=== PATIENT | male | born 1965 | race Caucasian/White ===

== ENCOUNTER 2017-12-17 14:22 | Emergency (ER) | payer BC, OTHER ==
[2017-12-17 15:06] VITALS: BP 141/79
--- NOTE | 2017-12-17 15:12 | UC ---
Throat Pain/Nasal Aj HPI - HPI Summary HPI Summary: sinus pain and pressure x 4 weeks + nasal congestion , pnd, cough no fever, no chills - History of Current Complaint Chief Complaint: UCRespiratory Stated Complaint: SINUSES Time Seen by Provider: 12/17/17 15:07 Hx Obtained From: Patient Onset/Duration: Gradual Onset, Lasting Weeks - 4, Still Present Severity: Moderate Pain Intensity: 8 Cough: None Associated Signs & Symptoms: Positive: Sinus Discomfort, Nasal Discharge. Negative: Dysphagia, FB Sensation, Drooling, Wheezing, Hoarseness, Fever, Vomiting, Rash - Allergies/Home Medications Allergies/Adverse Reactions: Allergies Allergy/AdvReac Type Severity Reaction Status Date / Time RADIOLOGY CONTRAST Allergy VOMITED Uncoded 12/17/17 15:02 PMH/Surg Hx/FS Hx/Imm Hx Previously Healthy: Yes - Surgical History Surgical History: Yes Surgery Procedure, Year, and Place: ORBITAL FX -PLATE. LT [place]- REMOVAL OF BURSA SAC. Lt RING FINGER - PINS ( PINS ARE NOW REMOVED) - Family History Known Family History: Negative: Diabetes - Social History Alcohol Use: Occasionally Substance Use Type: None Smoking Status (MU): Never Smoked Tobacco Review of Systems Constitutional: Negative Skin: Negative Eyes: Negative ENT: Sore Throat, Ear Ache, Nasal Discharge, Sinus Congestion, Sinus Pain/ Tenderness Respiratory: Negative Cardiovascular: Negative Gastrointestinal: Negative Is Patient Immunocompromised?: No All Other Systems Reviewed And Are Negative: Yes Physical Exam Triage Information Reviewed: Yes Appearance: Well-Appearing, No Pain Distress, Well-Nourished Vital Signs: Initial Vital Signs Temp 97.5 F 12/17/17 15:03 Pulse 86 12/17/17 15:03 Resp 16 12/17/17 15:03 BP 141/79 12/17/17 15:03 Pulse Ox 97 12/17/17 15:03 Vital Signs Reviewed: Yes Eyes: Positive: Conjunctiva Clear ENT: Positive: Normal ENT inspection, Hearing grossly normal, Pharynx normal, TMs normal, Sinus tenderness. Negative: Tonsillar swelling, Tonsillar exudate Neck: Positive: Supple, Nontender, No Lymphadenopathy Respiratory: Positive: Chest non-tender, Lungs clear, Normal breath sounds Cardiovascular: Positive: RRR, No Murmur, Pulses Normal Skin Exam: Normal Throat Pain/Nasal Course/Dx - Differential Dx/Diagnosis Provider Diagnoses: Sinusitis Discharge - Discharge Plan Condition: Stable Disposition: HOME Prescriptions: Amoxicillin/Clavulanate TAB* [Augmentin TAB 875*] 875 mg PO BID #20 tab Patient Education Materials: Sinusitis (ED) Referrals: No Primary Care Phys,NOPCP [Primary Care Provider] - If Needed
== END 2017-12-17 15:17 | disposition home or self-care (01) ==
LOC: UCCORT 14:22
DX: J32.9 Chronic sinusitis, unspecified (principal)
CPT/HCPCS: 99212; G0463

== ENCOUNTER 2017-12-26 12:32 | Emergency (ER) | payer BC ==
[2017-12-26 13:33] VITALS: BP 127/72
--- NOTE | 2017-12-26 14:45 | UC ---
Throat Pain/Nasal Aj HPI - HPI Summary HPI Summary: pt is c/o a 1 month hx sinus pain, pressure, congestion and green drainage. he was seen here on the 19 and tx with augmentin. pt notes minimal to no relief. he has self tx with nasal saline, decongestants and nyquil as well. no associated fever, headache or dental pain. denies allergies. - History of Current Complaint Chief Complaint: UCRespiratory Stated Complaint: RE-CHECK SINUS Time Seen by Provider: 12/26/17 14:35 Hx Obtained From: Patient Onset/Duration: Gradual Onset Severity: Severe Pain Intensity: 0 Associated Signs & Symptoms: Positive: Sinus Discomfort, Nasal Discharge. Negative: Fever - Epiglottits Risk Factors Epiglottis Risk Factors: Negative - Allergies/Home Medications Allergies/Adverse Reactions: Allergies Allergy/AdvReac Type Severity Reaction Status Date / Time RADIOLOGY CONTRAST Allergy VOMITED Uncoded 12/26/17 13:29 PMH/Surg Hx/FS Hx/Imm Hx Previously Healthy: Yes - Surgical History Surgical History: Yes Surgery Procedure, Year, and Place: ORBITAL FX -PLATE. [facility]- REMOVAL OF BURSA SAC. Lt RING FINGER - PINS ( PINS ARE NOW REMOVED) - Family History Known Family History: Negative: Diabetes - Social History Occupation: Employed Full-time Lives: With Family Alcohol Use: Occasionally Substance Use Type: None Smoking Status (MU): Never Smoked Tobacco - Immunization History Vaccination Up to Date: Yes Review of Systems Constitutional: Negative Skin: Negative Eyes: Negative ENT: Nasal Discharge, Sinus Congestion, Sinus Pain/Tenderness Respiratory: Negative Cardiovascular: Negative Gastrointestinal: Negative Genitourinary: Negative Motor: Negative Neurovascular: Negative Musculoskeletal: Negative Neurological: Negative Psychological: Negative Is Patient Immunocompromised?: No All Other Systems Reviewed And Are Negative: Yes Physical Exam Triage Information Reviewed: Yes Appearance: Well-Appearing Vital Signs: Initial Vital Signs Temp 97.5 F 12/26/17 13:29 Pulse 83 12/26/17 13:29 Resp 18 12/26/17 13:29 BP 127/72 12/26/17 13:29 Pulse Ox 100 12/26/17 13:29 Eyes: Positive: Conjunctiva Clear ENT: Positive: Pharynx normal, Nasal drainage, TMs normal, Sinus tenderness Neck: Positive: Supple, Nontender, No Lymphadenopathy Respiratory: Positive: Lungs clear, Normal breath sounds Cardiovascular: Positive: RRR, No Murmur, Pulses Normal Abdomen Description: Positive: Nontender, No Organomegaly, Soft Bowel Sounds: Positive: Present Musculoskeletal: Positive: ROM Intact Neurological: Positive: Alert Psychological: Positive: Age Appropriate Behavior Skin Exam: Normal Throat Pain/Nasal Course/Dx - Course Course Of Treatment: pt hx/PE c/w sinusitis. he has failed tx with augmentin and otc tx. i have advised pt of risk for c-diff colitis, mm/tendon/ligament complications associated with Levaquin. He is willing to take risk thus will tx with Levaquin, prednisone and ENT f/u. Pt works in this area and is requesting f /u with Dr Lebron thus referal given to Dr Lebron. - Differential Dx/Diagnosis Provider Diagnoses: sinusitis Discharge - Discharge Plan Condition: Stable Disposition: HOME Prescriptions: Levofloxacin TAB* [Levaquin TAB*] 750 mg PO DAILY 7 Days #7 tab predniSONE [Prednisone] 40 mg PO DAILY 5 Days #10 tablet Patient Education Materials: Sinusitis (ED) Referrals: Thomas OLIVARES,Eugenio Larkin [Primary Care Provider] - If Needed Rhett Lebron MD [Medical Doctor] - 7 Days Additional Instructions: STOP THE AUGMENTIN
== END 2017-12-26 15:07 | disposition home or self-care (01) ==
LOC: UCCORT 12:32
DX: J32.9 Chronic sinusitis, unspecified (principal)
CPT/HCPCS: 99212; G0463

== ENCOUNTER 2018-10-15 13:32 | Emergency (ER) | payer BC ==
[2018-10-15 13:47] VITALS: BP 130/72
--- NOTE | 2018-10-15 14:17 | UC ---
UC General HPI - HPI Summary HPI Summary: PT C/O PAIN IN L BACK, NOTED IT UPON WAKING YESTERDAY AM. TOOK MOTRIN AND GOT BETTER. TODAY, STOOD UP FROM HIS DESK AND FELT SUDDEN PAIN IN L SIDE AGAIN. 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 STATES " IT FEELS LIKE IT IS DEEP INSIDE" NO HX INJURY OR OVER USE. + NAUSEA. NO FEVER, ABDOMINAL PAIN, SADDLE ANESTHESIA, NUMB/WEAK/TINGLING EXTREMITIES, NO BOWEL/BLADDER DYSFUNCTION. - History of Current Complaint Chief Complaint: UCGU Stated Complaint: LOWER BACK LEFT SIDE PAIN Time Seen by Provider: 10/15/18 14:03 Hx Obtained From: Patient Pain Intensity: 3 Associated Signs & Symptoms: Positive: Back Pain, Nausea. Negative: Abdominal Pain, Chest Pain, Dizziness, Dysuria, Fever, SOB, Vomiting - Allergy/Home Medications Allergies/Adverse Reactions: Allergies Allergy/AdvReac Type Severity Reaction Status Date / Time cyclobenzaprine Allergy Swelling Verified 10/15/18 13:42 [From Flexeril] Of Face,Lips,& Throat RADIOLOGY CONTRAST Allergy VOMITED Uncoded 10/15/18 13:42 Home Medications: Home Medications Naproxen Sodium [Aleve] 660 mg PO ONCE PRN 10/15/18 [History Confirmed 10/15/18] metFORMIN* [Glucophage 500 MG TAB *] 500 mg PO BID 10/15/18 [History Confirmed 10/15/18] PMH/Surg Hx/FS Hx/Imm Hx Endocrine History: Diabetes - Surgical History Surgical History: Yes Surgery Procedure, Year, and Place: ORBITAL FX -PLATE. [facility] [place]- REMOVAL OF BURSA SAC. Lt RING FINGER - PINS ( PINS ARE NOW REMOVED) - Family History Known Family History: Negative: Diabetes - Social History Occupation: Employed Full-time Alcohol Use: Daily Alcohol Amount: beer Substance Use Type: None Smoking Status (MU): Never Smoked Tobacco - Immunization History Vaccination Up to Date: Yes Review of Systems All Other Systems Reviewed And Are Negative: Yes Constitutional: Negative: Fever Skin: Positive: Negative Eyes: Positive: Negative ENT: Positive: Negative Respiratory: Positive: Negative Cardiovascular: Positive: Negative Gastrointestinal: Positive: Nausea. Negative: Abdominal Pain, Vomiting, Diarrhea Genitourinary: Positive: Other - no testicular pain. Negative: Dysuria, Hematuria, Frequency, Urgency, Vaginal/Penile Burning, Vaginal/Penile Discharge , Vaginal/Penile Pain, Vaginal/Penile Tenderness Motor: Negative: Weakness Neurovascular: Negative: Decreased Sensation Musculoskeletal: Positive: Other: - L back/flank pain. Negative: Decreased ROM Neurological: Positive: Negative Psychological: Positive: Negative Is Patient Immunocompromised?: No Physical Exam Triage Information Reviewed: Yes Appearance: Pain Distress Vital Signs: Initial Vital Signs Temp 97.5 F 10/15/18 13:43 Pulse 96 10/15/18 13:43 Resp 15 10/15/18 13:43 BP 130/72 10/15/18 13:43 Pulse Ox 97 10/15/18 13:43 Vital Signs Reviewed: Yes Eyes: Positive: Conjunctiva Clear ENT: Positive: Pharynx normal, TMs normal. Negative: Nasal congestion, Nasal drainage Neck: Positive: Supple, Nontender, No Lymphadenopathy Respiratory: Positive: Lungs clear, Normal breath sounds, No respiratory distress Cardiovascular: Positive: RRR, No Murmur, Pulses Normal - BUE's Abdomen Description: Positive: Nontender, No Organomegaly, Soft. Negative: CVA Tenderness (R), CVA Tenderness (L), Distended, Guarding, Pulsatile Mass Bowel Sounds: Positive: Present Musculoskeletal: Positive: Other: - Back:No gross deformity, swelling, discoloration. Non tender. Pt notes vague discomfort L flank on twisitng and upon standing. ROM in back/neck is intact. 5/5 strength, 2+reflexes and sensation intact x4. no saddle anesthesia. negative straight leg raises x2. steady gait. Neurological: Positive: Alert Psychological: Positive: Age Appropriate Behavior Skin Exam: Normal Skin: Negative: Rashes Diagnostics - Radiology No standard instances Radiology Interpretation Completed By: Radiologist - CT ABD/PELVIS=IMPRESSION: Hepatic steatosis. No evidence of hydronephrosis or obstructive uropathy is noted. No other masses or fluid collections are noted Re-Evaluation - Re-Evaluation Second Eval Re-Evaluation Time: 15:15 Change: Improved - pain resolved. pt's friends arrived to drive him home. he did decline the zofran, nausea resolved. Course/Dx - Course Course Of Treatment: Results of U/a and CT d/w pt including Fatty liver. Need for close f/u with pcp and go to ER for recurrent pain, changes or worsening stressed to which pt agrees. - Differential Dx - Multi-Symptom Differential Diagnoses: Other - no concern for AA or cauda equina. No acute abdomen/torsion. Possible renal colic. most c/w musculoskeletal pain. - Diagnoses Provider Diagnosis: Left-sided back pain, Flank pain Discharge - Sign-Out/Discharge Documenting (check all that apply): Patient Departure All imaging exams completed and their final reports reviewed: Yes - Discharge Plan Condition: Stable Disposition: HOME Prescriptions: Naproxen [Naprosyn 500 mg tab] 500 mg PO BID PRN #10 tablet PRN Reason: Pain - Back Patient Education Materials: Flank Pain (ED), Back Pain (ED) Referrals: Noris Cook MD [Primary Care Provider] - As Soon As Possible Additional Instructions: GO TO ER FOR RECURRENT PAIN/CHANGES/WORSENING. DO NOT DRIVE THE REST OF TONIGHT. - Billing Disposition and Condition Condition: STABLE Disposition: Home
[2018-10-15] MEDS ORDERED: Ondansetron ODT TAB* 4 MG PO ONE (14:18)
[2018-10-15] MEDS ORDERED: Acetaminophen ADULT LIQ* 650 MG/20.3 ML UDC PO ONE (14:18)
[2018-10-15] MEDS ORDERED: HYDROcodone/ACETAMIN 5-325 MG* 1 TAB PO ONE (15:05)
== END 2018-10-15 15:37 | disposition home or self-care (01) ==
LOC: UCCORT 13:32
DX: M54.9 Dorsalgia, unspecified (principal); R10.9 Unspecified abdominal pain; Z88.8 Allergy status to other drugs, medicaments and biological substances; Z91.041 Radiographic dye allergy status
CPT/HCPCS: 74176; 81003; 87086; 99212; A9270-GY; G0463